=== PATIENT | female | born 1940 | race Caucasian/White ===

== ENCOUNTER 2020-05-01 00:59 | Inpatient (IN) | payer OTHER ==
[~2020-05-01] VITALS: Ht 165.1 cm; Wt 73.6 kg
[2020-05-01 06:20] VITALS: BP 141/74
[2020-05-01 07:41] VITALS: BP 110/62
[2020-05-01 15:23] VITALS: BP 110/62
[2020-05-01 19:30] VITALS: BP 145/75
[2020-05-02 09:12] VITALS: BP 146/73
[2020-05-02 18:57] VITALS: BP 163/76
[2020-05-03 07:49] VITALS: BP 100/72
[2020-05-03 11:03] VITALS: BP 100/72
[2020-05-03 20:00] VITALS: BP 148/88
[2020-05-03 21:01] VITALS: BP 148/88
[2020-05-04 08:52] VITALS: BP 158/84
[2020-05-04 12:29] VITALS: BP 158/84
[2020-05-04 19:27] VITALS: BP 171/84
[2020-05-04 20:40] VITALS: BP 171/84
[2020-05-05 07:42] VITALS: BP 128/66
[2020-05-05 11:59] LABS: ABSOLUTE NEUTROPHILS 3.3 thou/uL (1.4-8.2); BASOPHILS 0.6 % (0.0-2.0); EOSINOPHILS 1.3 % (0.0-3.0); HEMATOCRIT 40.4 % (37.0-47.0); HEMOGLOBIN 13.3 gm/dL (12.0-15.0); MCH 30.6 pg (26.0-34.0); MCV 92.8 fL (80.0-100.0); MONOCYTES 7.3 % (1.0-8.0); PLATELET COUNT 291 thou/uL (150-400); POLYS 70.8 % (36.0-66.0); RBC 4.36 mil/uL (4.20-5.00); RDW 13.8 % (10.5-14.5); WBC 4.6 thou/uL (4.0-11.0)
[2020-05-05 12:08] LABS: ALBUMIN 3.6 g/dL (3.4-5.0); CALCIUM 8.6 mg/dL (8.5-10.1); CREATININE 0.6 mg/dL (0.6-1.0); POTASSIUM 4.5 mmol/L (3.5-5.1); TOTAL BILIRUBIN 0.3 mg/dL (0.2-1.0); TOTAL PROTEIN 7.1 g/dL (6.4-8.2)
[2020-05-05 19:50] VITALS: BP 137/73
[2020-05-06 07:49] VITALS: BP 113/60
[2020-05-06 15:44] VITALS: BP 113/60
[2020-05-06 19:38] VITALS: BP 174/71
[2020-05-06 21:00] VITALS: BP 174/71
[2020-05-07 07:25] VITALS: BP 134/81
[2020-05-08 07:24] VITALS: BP 104/68
[2020-05-08 12:27] VITALS: BP 104/68
[2020-05-08 19:37] VITALS: BP 84/43
[2020-05-09 07:40] VITALS: BP 123/58
[2020-05-09 19:35] VITALS: BP 122/54
[2020-05-10 07:51] VITALS: BP 180/85
[2020-05-10 20:20] VITALS: BP 113/73
[2020-05-11 00:04] VITALS: BP 113/73
[2020-05-11 07:16] VITALS: BP 128/69
[2020-05-11 09:14] LABS: URINE BILIRUBIN NEGATIVE (Negative); URINE BLOOD NEGATIVE (Negative); URINE COLOR YELLOW; URINE GLUCOSE-RANDOM* NEGATIVE (Negative); URINE KETONES NEGATIVE (Negative); URINE LEUKOCYTES TRACE (Negative); URINE NITRITE NEGATIVE (Negative); URINE PROTEIN (DIPSTICK) NEGATIVE (Negative); URINE SPECIFIC GRAVITY 1.015 (1.005-1.035); URINE UROBILINOGEN 0.2 E.U./dl (0.2-1.0)
[2020-05-11 09:15] LABS: URINE CLARITY SL HAZY
[2020-05-11 19:32] VITALS: BP 142/82
[2020-05-12 07:26] VITALS: BP 126/64
[2020-05-12 19:37] VITALS: BP 137/56
[2020-05-13 07:22] VITALS: BP 100/54
[2020-05-13 10:04] VITALS: BP 100/54
[2020-05-13 14:08] VITALS: BP 100/54
[2020-05-13 20:42] VITALS: BP 157/80
[2020-05-14 05:57] VITALS: BP 159/72
[2020-05-14 05:58] VITALS: BP 159/72
[2020-05-14 07:27] VITALS: BP 117/50
[2020-05-14 11:34] VITALS: BP 117/50
[2020-05-14 19:18] VITALS: BP 128/67
[2020-05-15 07:30] VITALS: BP 81/48
[2020-05-15 09:32] VITALS: BP 120/97
[2020-05-15 09:34] VITALS: BP 116/65
[2020-05-15] MEDS ORDERED: ZYPREXA 5 MG TAB5 M1 PO (09:39)
[2020-05-15] MEDS ORDERED: TEGRETOL XR100 MG PO (09:39)
[2020-05-15] MEDS ORDERED: OLANZAPINE ODT5 MG PO (09:40)
[2020-05-15] MEDS ORDERED: SENNA-TIME S T1 EACH PO (09:41)
[2020-05-15 10:21] VITALS: BP 116/65
--- NOTE | 2020-05-16 19:42 | D ---
[facility] [place] [address] DISCHARGE SUMMARY Name: DURGA MATA Room #: 526A-A [facility] IN M.R.#: [id number] Admission: 05/01/20 Attend Phys: Sg Lisa DO Discharge: 05/15/20 Date of : 44 Report #: [id number] THIS REPORT FOR: cc: YUSUF - Family physician unknown FAM - Family physician unknown Sg Lisa DO ~ THIS REPORT FOR: //name// CC: Sg GOLDBERG unknown DATE OF SERVICE: 05/15/2020 INPATIENT PSYCHIATRIC DISCHARGE SUMMARY ATTENDING PHYSICIAN: Sg Lisa DO. ELDER COUNSELOR AT THE TIME OF DISCHARGE: Dr. Chester. 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 Dysphagia. Medical comorbidities are as follows: Vomiting resolved, constipation resolved, other medical problems negative. DISCHARGE PLAN: Discharging to her home where she lives with her in [facility]. Aftercare is as follows: Primary care physician, Dr. Davidson, ; psychiatric doctor is Dr. Brock, . PCP appointment is on 05/26/2020 at 10:30. Psychiatrist appointment on 05/29/2020 at 1:20 p.m. She is on nectar thick liquids and mechanical soft daily chopped diet. DISCHARGE MEDICATIONS: Carbamazepine XR, Tegretol 300 mg p.o. b.i.d. for mood stabilization, olanzapine 5 mg p.o. b.i.d. for psychosis, also olanzapine 2.5 mg p.o. at 1300 daily, senna with docusate 2 tabs p.o. b.i.d. for bowel motility. The patient requires 24/7 care and supervision. The patient does have a degree of chronic suicidality. Her was advised that she has an elopement risk. She should not have access to dangerous weapons, knives or pills. wanted her to come home, placement was offered, would like to pursue that at a later date including completing Medicaid application. LABORATORY DATA: Of note, this admission, hematology from 05/05/2020, H and H 13.3 and 40.4, white count 4.6, platelets 291. Sodium 137, potassium 4.5, chloride 103, bicarbonate 31, anion gap 3, BUN 11, creatinine 0.6, estimated GFR 97, glucose 86, calcium 8.6, total bilirubin 0.3, AST 38, ALT 54, alkaline phosphatase 93, total protein 7.1, albumin 3.6. Urinalysis, trace leukocyte [address] [address] DISCHARGE SUMMARY Name: DURGA MATA Room #: 526A-A [facility] IN M.R.#: [id number] Admission: 05/01/20 Attend Phys: Sg Lisa DO Discharge: 05/15/20 Date of : 44 Report #: [id number] esterase, otherwise negative. Toxicology: Tegretol level at 150 mg twice per day on 05/09/2020 was 9.4, 300 mg b.i.d. on 05/15/2020 was 8.5. This is due to the autoinduction properties, Tegretol level should be periodically monitored. REASON FOR ADMISSION: Back on 05/01/2020 is as follows: A 79-year-old female transferred from [facility] in [place], [place]. The patient was reported to be acting irregular and throwing things at home. The patient's brought her in because she was also getting aggressive. The patient has a history of major neurocognitive disorder. HOSPITAL COURSE: The patient was admitted to the Geriatric Psychiatry Unit. The had specific medication requests. He did not want her on Seroquel, did not want her on Depakote, Tegretol-XR was started, olanzapine was titrated starting at I believe 2.5 mg twice a day up to 5 mg twice a day and 2.5 mg a day dose was added. During the course of hospitalization, the patient's mood reported suicidality, waxed and wane. She had no evidence of self-harm. At times, she would do several unsafe things like walk with garments wrapped around her ankles. The patient at times would become irritable and being unable to express her needs, specifically like she just needed the nurse to do everything for her. Placement in memory care was advised; however, her who is her DPOA wanted to defer this. On the day of discharge, the patient was not an imminent threat to self or others, denied HI. PHYSICAL EXAMINATION: VITAL SIGNS: On the day of discharge, temperature 36.7, pulse 63, respirations 17, BP 115/65, O2 sat 94% on no oxygen. MUSCULOSKELETAL: Slow gait, slightly unkempt. MENTAL STATUS EXAMINATION: This is a well-developed, somewhat ill-appearing female appearing at least stated age. Attention limited. Concentration limited. Speech is normal in rate, volume and at times she will yell, but can be redirected. No psychomotor agitation, no psychomotor retardation. She denied HI, reported baseline suicidal thoughts, but no plan. Memory not formally tested today. Insight impaired, judgment impaired. Fund of knowledge below average. PROGNOSIS: For this patient is guarded to poor given her age of 79, advance dementia and limited support. <ELECTRONICALLY SIGNED> By: Sg Lisa DO 05/16/201941 [id number] Sg Lisa DO /nt
== END 2020-05-15 11:15 | disposition home or self-care (01) | DRG 57 ==
LOC: SBH 00:59
PROVIDERS: Psychiatry & Neurology Psychiatry; ADMIT Psychiatry & Neurology Psychiatry; ATTEND Psychiatry & Neurology Psychiatry
DX: G30.9 Alzheimer's disease, unspecified (principal); F02.81 Dementia in other diseases classified elsewhere, unspecified severity, with behavioral disturbance; F01.50 Vascular dementia, unspecified severity, without behavioral disturbance, psychotic disturbance, mood disturbance, and anxiety; F32.9 Major depressive disorder, single episode, unspecified; F41.9 Anxiety disorder, unspecified; F25.0 Schizoaffective disorder, bipolar type; K59.00 Constipation, unspecified; I10 Essential (primary) hypertension; F29 Unspecified psychosis not due to a substance or known physiological condition; R13.10 Dysphagia, unspecified; Z90.49 Acquired absence of other specified parts of digestive tract
CPT/HCPCS: 10880